=== PATIENT | male | born 1980 | race Caucasian/White ===

== ENCOUNTER 2020-10-06 13:34 | Outpatient (REF) | payer OTHER, SELFPAY ==
--- NOTE | ~2020-10-06 | US_ITS ---
EXAMINATION: US SCROTUM CLINICAL INFORMATION: Left testicular pain. COMPARISON: None. TECHNIQUE: A sonogram of the scrotum was performed assessing ríos-scale appearance and color Doppler flow. Spectral Doppler analysis of the arterial and venous flow were performed in the testes bilaterally. FINDINGS: RIGHT: Right testicle measures 5.0 x 2.1 x 2.7 cm, volume 14.8 mL. There are 2 lesions visualized. 1. Complex heterogenous hypervascular lesion measuring 1.1 x 1.0 x 0.8 mL and ill-defined margins. 2. A hypoechoic lesion with irregular borders and microcalcifications measuring 1.1 x 1.1 x 1.4 cm. Spectral Doppler analysis of the arterial and venous flow is normal in the right testis. Right epididymal head is normal in size. There is an small epididymal cyst measuring 0.3 x 0.3 x 0.3 cm. There is a small right hydrocele and varicocele seen. Right epididymal Doppler flow is increased suggestive of epididymitis. Outside the right testes, in the scrotal wall is an echogenic area question small radha or calcification measuring 0.8 x 0.2 x 1.0 cm. LEFT: Left testicle measures 5.3 x 2.7 x 3.4 cm, volume 25.4 mL. No focal testicular parenchymal lesions are visualized. Spectral Doppler analysis of the arterial and venous flow is increased in the left testis suggestive of epididymitis. Left epididymal head is normal in size. There is a small left hydrocele. No varicocele is seen. Left epididymal Doppler flow is increased suggestive of epididymitis. US/US scrotum IMPRESSION: Bilateral increase epididymal flow suggestive of epididymitis. Right epididymal cyst and right varicocele. There are bilateral small hydroceles. There are 2 solid lesions in the right testes one is hypoechoic with irregular margins but hypervascular likely primary lesion, leukemia or lymphoma. Second echogenic solid mass lower right scrotum, question hematoma or iatrogenic leading into a lesion. Recommend further evaluation with a repeat ultrasound in 2 weeks. Enlarged testes left greater than right. The left testes is unremarkable. Results were discussed with Shawn Garrison by phone at 2:40 PM.
== END 2020-10-06 13:35 | disposition home or self-care (01) ==
LOC: HO.HMGCX 13:34
PROVIDERS: Visit Provider Nurse Practitioner Family
DX: N50.812 Left testicular pain (principal)
CPT/HCPCS: 76870

== ENCOUNTER → 2020-10-18 15:29 | Outpatient (BNVA) | payer OTHER, SELFPAY | PROVIDERS: PCP Nurse Practitioner Family; Visit Provider Urology ==

== ENCOUNTER 2020-10-30 16:15 | Outpatient (REF) | payer OTHER, SELFPAY ==
--- NOTE | ~2020-10-30 | US_ITS ---
EXAMINATION: US SCROTUM CLINICAL INFORMATION: Follow-up testicular mass. COMPARISON: Ultrasound of scrotum 10/06/2020 TECHNIQUE: A sonogram of the scrotum was performed assessing ríos-scale appearance and color Doppler flow. Spectral Doppler analysis of the arterial and venous flow were performed in the testes bilaterally. FINDINGS: RIGHT: Again demonstrated in the right testicle are 2 lesions. There is a complex solid mass measuring 1.1 x 0.9 x 0.8 cm. This is hypervascular. There is a hypoechoic ill-defined mass measuring 1.3 x 0.8 x 0.8 cm. Both of these lesions are similar to the prior ultrasound study of 10/06/2020. The right testicle measures 4.8 x 2.3 x 2.9 cm. Volume 17 mL. There are a few small microcalcifications the testicle. Right epididymal head is normal in size. There is a small right-sided varicocele. LEFT: Left testicle measures 3.2 x 2.5 x 3.4 cm. cm, volume 23 mL. No focal testicular parenchymal lesions are visualized. Spectral Doppler analysis of the arterial and venous flow is normal in the left testis. There are a few small microcalcifications and testicles. Left epididymal head is normal in size. No left hydrocele or varicocele is seen. Left epididymal Doppler flow is normal. US/US scrotum IMPRESSION: The previously identified lesions in the right testicle are redemonstrated Both of these lesions are similar to the prior ultrasound exam of 10/06/2020. Lesions are suspicious for neoplasm.
== END 2020-10-30 16:16 | disposition home or self-care (01) ==
LOC: HO.US 16:15
PROVIDERS: Visit Provider Nurse Practitioner Family
DX: N50.89 Other specified disorders of the male genital organs (principal); N50.812 Left testicular pain
CPT/HCPCS: 76870

== ENCOUNTER → 2020-11-28 13:46 | Outpatient (BNVA) | payer OTHER, SELFPAY | PROVIDERS: Visit Provider Urology ==

== ENCOUNTER 2020-12-11 14:03 | Day surgery (SDC) | payer OTHER, SELFPAY ==
--- NOTE | 2020-12-07 14:16 | HO.ANESPROP2 ---
Documented by User: Pauly Scott 12/07/20 14:17 HPI - Anesthesia Eval Consult details Narrative: 40yo M for Right Orchiectomy Radical PMFSH Active Problems Active Problems: All Active Problems (Updated 10/12/20 @ 13:17 by Juju Hermosillo MD) Conjunctivitis (Acute) Cellulitis (Acute) Testicular pain, left (Acute) Epididymitis (Acute) Mass of right testicle (Acute) Testicular pain (Acute) Past Medical History Medical History Mass of right testicle Family History Family History Father Prostate cancer Mother Afib Asthma High cholesterol HTN (hypertension) Brother Asthma High cholesterol HTN (hypertension) Surgical History Surgical History Hx of appendectomy Social History Social History Household Members: Spouse Housing: House Are you a primary outdoor emergency care technician to a significant other at home: No Do you presently have visiting nurse or other home services: No Alcohol intake: current Alcohol intake frequency: holidays/special occasions only Alcohol type: beer Patient Tobacco Use Status: Never used Tobacco Second Hand Smoke Exposure: No Use of substances other than those prescribed or required for medical reasons: No Substance Use Type: Marijuana Are you DNR?: No Advance Directives: No Advance Directives Information Provided: Yes Advance Directives on File: No Meds Allergies Allergy/AdvReac Type Severity Reaction Status Date / Time No Known Allergies Allergy Verified 10/18/20 15:50 Exam Exam Date and Time: December 07, 2020 1416 Narrative Narrative: US scrotum 10/2020 IMPRESSION: The previously identified lesions in the right testicle are redemonstrated Both of these lesions are similar to the prior ultrasound exam of 10/06/2020. Lesions are suspicious for neoplasm. Assessment and Plan Assessment Anesthesia Assessment: Chart Reviewed Documented by User: Chelle Webb 12/11/20 17:37 PMFSH Past Medical History Medical History Mass of right testicle Family History Family History Father Prostate cancer Mother Afib Asthma High cholesterol HTN (hypertension) Brother Asthma High cholesterol HTN (hypertension) Family history of problems with anesthesia: No Surgical History Surgical History Hx of appendectomy History of Problems with Anesthesia: No Social History Social History Household Members: Spouse Housing: House Are you a primary outdoor emergency care technician to a significant other at home: No Do you presently have visiting nurse or other home services: No Alcohol intake: current Alcohol intake frequency: holidays/special occasions only Alcohol type: beer Patient Tobacco Use Status: Never used Tobacco Second Hand Smoke Exposure: No Use of substances other than those prescribed or required for medical reasons: No Substance Use Type: Marijuana Are you DNR?: No Advance Directives: No Advance Directives Information Provided: Yes Advance Directives on File: No Meds Allergies Allergy/AdvReac Type Severity Reaction Status Date / Time No Known Allergies Allergy Verified 10/18/20 15:50 Exam Height,Weight and Vital Signs: Vital Signs Temp Pulse Resp BP Pulse Ox 12/11/20 14:21 98.5 F 87 16 143/80 H 97 Airway Mallampati Class: II TM Dist: >3cm Neck ROM: Full Heart: RRR Lungs: CTAB Assessment and Plan Assessment Anesthesia Assessment: Anesthesia Plan Discussed and Chart Reviewed Final Anesthetic Review NPO: Yes ASA Class: II Final Preanesthetic Review: No Changes in Pt Med Stat, Meds/Allgs Chart Reviewed, Consent Obtained/Reviewed and Anes Risks/Benef Reviewed Patient Risk: Low Procedure Risk: Low Assessment/Block/Sedation in SS: Assess/Block/Sedation-SS Anesthetic Plan Anesthetic Plan: GA Disposition: Standard PACU
[2020-12-11] VITALS (7 sets, daily range): BP systolic 139–147; BP diastolic 80–94; PULSE 64–91; RESP 15–17; TEMP 36.6–36.9; O2SAT 94–145; BMI 29.5
[2020-12-11] MEDS: levoFLOXacin/D5W 500 MG/100 ML PIGGYBACK 100 MG IV (14:34)
[2020-12-11] MEDS: Lactated Ringers 1,000 ML 100 ML IVCONT (14:34)
--- NOTE | 2020-12-11 18:10 | MHC.SHP ---
Pre-Procedural Eval Section A The patient is an INPATIENT: No Changes since office visit: No Cold of Flu in the past 2 weeks, No New Medical Problems, No Changes in Medication and No Patient answered all questions The History & Physical has been completed within 30 days and I have reviewed it.: Yes Section B Chief Complaint: genital organs disorders Allergies: Allergies Allergy/AdvReac Type Severity Reaction Status Date / Time No Known Allergies Allergy Verified 10/18/20 15:50 Plan Diagnosis/Plan: Unchanged ( right radical orchiectomy) I have reviewed the history and physical and performed a pertinent physical examination on my patient. No changes have occurred unless specified.
--- NOTE | 2020-12-11 18:19 | HO.ANESPROP2 ---
[facility] Active Problems Active Problems: All Active Problems (Updated 12/07/20 @ 14:17 by Pauly Scott) Conjunctivitis (Acute) Cellulitis (Acute) Testicular pain, left (Acute) Epididymitis (Acute) Testicular pain (Acute) Past Medical History Medical History Mass of right testicle Family History Family History Father Prostate cancer Mother Afib Asthma High cholesterol HTN (hypertension) Brother Asthma High cholesterol HTN (hypertension) Family history of problems with anesthesia: No Surgical History Surgical History Hx of appendectomy History of Problems with Anesthesia: No Social History Social History Household Members: Spouse Housing: House Are you a primary cardiac care unit nurse to a significant other at home: No Do you presently have visiting nurse or other home services: No Alcohol intake: current Alcohol intake frequency: holidays/special occasions only Alcohol type: beer Patient Tobacco Use Status: Never used Tobacco Second Hand Smoke Exposure: No Use of substances other than those prescribed or required for medical reasons: No Substance Use Type: Marijuana Are you DNR?: No Advance Directives: No Advance Directives Information Provided: Yes Advance Directives on File: No Meds Allergies Allergy/AdvReac Type Severity Reaction Status Date / Time No Known Allergies Allergy Verified 10/18/20 15:50 Active Medications: Current Medications Generic Name Dose Route Start Last Admin Trade Name Freq PRN Reason Stop Dose Admin Lactated Ringer's 1,000 mls @ 100 mls/hr 12/11/20 14:30 12/11/20 14:34 Lr IVCONT 100 mls/hr .Q10H EDGAR Administration Exam Exam Date and Time: December 11, 20201818 Height,Weight and Vital Signs: Height 5 ft 9 in Weight 90.718 kg Last Vital Signs Temp 98.5 F 12/11/20 14:21 Pulse 87 12/11/20 14:21 Resp 16 12/11/20 14:21 BP 143/80 H 12/11/20 14:21 Pulse Ox 97 12/11/20 14:21 Airway Mallampati Class: II TM Dist: >3cm Neck ROM: Full
--- NOTE | 2020-12-11 19:18 | W.PM.OPN ---
Operative Note Operative Note Date of Service: 12/11/20 Narrative: PreOperative Diagnosis: Right testicular mass Post Operative Diagnosis: Right testicular mass Procedure: Right radical orchiectomy Surgeon: Dr Raj Tran Anesthesia: General Indications for procedure: Initial evaluation for right epididymitis. Indistinct mass within testicle. Repeat imaging after 6 weeks showed persistent presence of mass with resolution of inflammation. Recommendation for right radical orchiectomy. He understands he is 25% chance we may have normal testicular tissue. Procedure: After informed consent was verified the patient was brought to the operating room and placed in a supine position. Anesthesia was administered per protocol. The patient was prepped and draped in sterile fashion. Safety pause time-out was performed. Antibiotics being given. Marking pen was used to make 2-1/2 inch suprainguinal incision. Area was infiltrated with local anesthetic lidocaine 1%. Using sharp blade skin and subcutaneous tissue was incised. Dissection was performed down to layer of the abdominal fascia. The testicle cord was located at the symphysis and elevated and isolated using a [place] drain. The cord was taken back to the inguinal canal and approximately 2 cm inguinal canal was opened with Bovie dissection. Final attachments to the cord were divided. The cord was then divided into with a vascular component and the cord structures into the 2nd packet. Each packet was clamped. The specimen was taken. The cord packet was tied with a 0 silk tie and cut close. The vascular packet was controlled using a stick tie and leaving a 5 cm tail in case this needs to be found at a later date. The overlying abdominal fascia was closed with running 3-0 Monocryl. The incision was irrigated. Skin edges were reapproximated with interrupted 3-0 Vicryl suture. The skin edges were brought close together with 4-0 running Monocryl filament. Dressing was applied consisting of Dermabond glue. He tolerated the procedure well was extubated in operating room transferred in stable condition to the recovery area. Pathology: Testicle Drains: None
[2020-12-11] MEDS: traMADoL HCL 50 MG TABLET PO (19:50)
== END 2020-12-11 20:30 | disposition home or self-care (01) ==
PROVIDERS: PCP Nurse Practitioner Family; Visit Provider Urology
PROC: (CPT 54530; principal; 2020-12-11 16:30)
DX: N50.89 Other specified disorders of the male genital organs (principal); N45.1 Epididymitis; F12.90 Cannabis use, unspecified, uncomplicated
CPT/HCPCS: 54530; 88307; 88309; J1100; J1885; J1956; J2250; J2405; J3010

== ENCOUNTER → 2020-12-20 09:31 | Outpatient (BNVA) | payer OTHER, SELFPAY | PROVIDERS: PCP Nurse Practitioner Family; Visit Provider Urology ==

== ENCOUNTER 2020-12-21 08:21 | Emergency (ER) | payer OTHER, SELFPAY ==
--- NOTE | ~2020-12-21 | MR_ITS ---
EXAMINATION: MR LUMBAR SPINE WITHOUT CONTRAST CLINICAL INFORMATION: Left-sided weakness. Foot drop. COMPARISON: No relevant prior imaging. TECHNIQUE: MRI of the lumbar spine was obtained using routine sequences without contrast. FINDINGS: Alignment is normal. Vertebral heights are preserved. There are type II degenerative endplate changes at L5-S1. Bone marrow signal intensity is otherwise unremarkable. There is loss of intervertebral disc height and T2 signal intensity at L5-S1 related to disc degeneration. Disc desiccation is associated at L4-L5 and to a lesser extent at L3-L4. The tip of the conus medullaris is located at L1. No mass effect on the conus. Visualized distal cord signal intensity is normal. At L1-L2 L2-L3 the annular contours are normal. No canal or neuroforaminal compromise at these 2 levels. At L3-L4 there is a shallow central protrusion. No canal stenosis. No mass effect on the traversing or foraminal nerve roots. At L4-L5 there is a small central protrusion superimposed upon a bulging disc. Bilateral facet degenerative change. No canal stenosis. No mass effect on the traversing or foraminal nerve root. At L5-S1 there is a broad right central protrusion superimposed upon a bulging disc. Bilateral facet degenerative change. No canal stenosis. Mild mass effect on both L5 foraminal nerve root. Limited visualization of the retroperitoneal anatomy reveals no abnormal finding. Psoas and paraspinal muscle groups are symmetric. MR/MR lumbar spine wo con IMPRESSION: There is multilevel degenerative spondylosis of the mid to lower lumbar spine. A shallow right central protrusion superimposed upon a bulging disc at L5-S1 causes mild mass effect on both L5 foraminal nerve roots. Otherwise no substantial mass effect on the traversing or foraminal nerve roots elsewhere within the lumbar spine. No canal stenosis.
[2020-12-21 08:35] VITALS: BP 155/85; PULSE 85; RESP 18; TEMP 37.2; O2SAT 96; BMI 30.2
--- NOTE | 2020-12-21 09:23 | ED.GENADULT ---
HPI - General Adult General Chief complaint: Back Pain/Injury Stated complaint: BACK AND LEG PAIN Time Seen by Provider: 12/21/20 09:21 Source: patient Limitations: no limitations History of Present Illness HPI narrative: Patient complaining of worsening lower back pain. Patient states back pain is atraumatic. Worse with range of motion and radiating down left leg. Numbness tingling to the left foot. Symptoms are moderate. Pain is 9/10 no relief with tramadol. Patient recently had a Right radical orchiectomy done by Dr. Tran of Urology on 12/11/2020. Patient seen in the office yesterday patient prescribed tramadol for the worsening back pain at that time. Patient denies loss of bowel movements or urinary incontinence. Related Data Home Medications Medication Instructions Recorded Confirmed betamethasone dipropionate 0.05 % TOPICAL 12/20/20 topical ointment Previous Rx's Medication Instructions Recorded levofloxacin 500 mg tablet 500 mg PO DAILY 10 Days #10 tab 10/06/20 tramadol 50 mg tablet 50 mg PO Q6H PRN #14 tab 12/20/20 methocarbamol 750 mg PO TID PRN #20 tab 12/21/20 naproxen [EC-Naprosyn] 500 mg PO Q12H PRN #30 tab 12/21/20 oxycodone 5 mg PO TID PRN #14 tab 12/21/20 prednisone 60 mg PO DAILY 5 Days #15 tab 12/21/20 Allergies Allergy/AdvReac Type Severity Reaction Status Date / Time No Known Allergies Allergy Verified 12/20/20 09:33 Review of Systems Review of Systems: Constitutional : No Weight loss, No Fever, No Chills, No Night Sweats, No Fatigue, No Malaise ENT/Mouth : No Hearing loss, No Ear Pain, No Nasal Congestion, No Sinus Pain, No Hoarseness, No sore throat, No Rhinorrhea, No Swallowing Difficulty Eyes: No Eye Pain, No Swelling, No Redness, No Foreign Body, No Discharge, No Vision Changes Cardiovascular : No Chest Pain, No SOB, No Dyspnea on Exertion, No Orthopnea, No Edema, No Palpitations Respiratory : No Cough, No Sputum, No Wheezing, No Smoke Exposure, No Dyspnea Gastrointestinal : No Nausea, No Vomiting, No Diarrhea, No Constipation, No abdominal Pain Genitourinary : no irregular bleeding, No Dysuria, No Urinary Frequency, No Hematuria, No Urinary Incontinence, No Urgency, No Flank Pain, No Urinary Flow Changes, No Hesitancy Musculoskeletal : positive back pain radiating down left leg. Neuro : Left foot numbness. Psych : No Anxiety/Panic, No Depression, No SI/HI/AH/VH, No Social Issues, Heme/Lymph: No Bruising, No Bleeding,No Lymphadenopathy Endocrine : No Polyuria, No Polydipsia, No Temperature Intolerance [facility] Past Medical History Attestation statement: The following information was validated with the patient. Medical History Mass of right testicle Surgical History Hx of appendectomy Family History Family History (Reviewed 12/21/20 @ 09: by Vik Urena) Father Prostate cancer Mother Afib Asthma High cholesterol HTN (hypertension) Brother Asthma High cholesterol HTN (hypertension) Social History Social History Household Members: Spouse Housing: House Are you a primary ambulatory care coordinator to a significant other at home: No Do you presently have visiting nurse or other home services: No Alcohol intake: current Alcohol intake frequency: holidays/special occasions only Alcohol type: beer Patient Tobacco Use Status: Never used Tobacco Second Hand Smoke Exposure: No Substance Use Type: Marijuana Advance Directives: Yes Advance Directives Information Provided: Yes Advance Directives on File: No Physical Exam Vital Signs: Vital Signs: Last Vital Signs Temp 99.0 F 12/21/20 08:35 Pulse 85 12/21/20 08:35 Resp 18 12/21/20 11:46 BP 150/80 H 12/21/20 11:46 Pulse Ox 96 12/21/20 08:35 Body Mass Index 30.2 vital signs have been reviewed as normal and appeared to be correct. Blood pressure normal. Heart rate normal. Respiration rate normal. Temperature normal. Oxygen saturation normal. Appearance: Alert. Oriented X3. No acute distress. Head: Normal external exam. Normocephalic. Atraumatic. Eyes: PERRLA. EOMI ENT: Pharynx normal. Uvula midline. Moist mucous membranes. Neck: Soft full range of motion CVS: Heart regular rate and rhythm no murmurs and rubs Respiratory: Breath sounds are clear to auscultation bilaterally. No accessory muscle use noted. Abdomen: Soft nontender no rebound or guarding positive bowel sounds Back: Positive paraspinal muscle tenderness of the lumbar spine and left side positive straight leg raise on the left. left calf is nontender. Positive pulses in the left lower extremity. Skin: Skin warm and dry. Normal skin color. Extremities: Positive tenderness when palpating left foot pain increases with range of motion. Neuro: Oriented X 3. No motor deficit. No sensory deficit. Reflexes normal. Course Course Course Narrative: Lumbar disc herniation Left leg sciatica Lumbar strain Lumbar disc impingement 9:29 a.m. 30 mg Toradol IM 4 mg morphine IM 60 mg prednisone p.o. 9:49 a.m. secondary to findings of the left foot weakness will get an MRI of the lumbar spine at this time plan for 11:45 a.m. 11:20 a.m. positive relief with analgesics patient still has some slight left foot weakness case discussed with Dr. Sibley he is aware of current treatment and plan Medical Decision Making Imaging Data MRI: Radiologist's impression: [address] [id number] Resonance ReportSigned Patient: [facility]#: [id number]: 1980Acct:[id number]/Sex: 40 / MADM Date: 12/21/20Loc: EDAttending Dr: Ordering Physician: Vik Urena Date of Service: 12/21/20 Procedure(s): MR lumbar spine wo con Accession Number(s): [id number] cc: Vik Urena ~ EXAMINATION: MR LUMBAR SPINE WITHOUT CONTRAST CLINICAL INFORMATION: Left-sided weakness. Foot drop. COMPARISON: No relevant prior imaging. TECHNIQUE: MRI of the lumbar spine was obtained using routine sequences without contrast. FINDINGS: Alignment is normal. Vertebral heights are preserved. There are type II degenerative endplate changes at L5-S1. Bone marrow signal intensity is otherwise unremarkable. There is loss of intervertebral disc height and T2 signal intensity at L5-S1 related to disc degeneration. Disc desiccation is associated at L4-L5 and to a lesser extent at L3-L4. The tip of the conus medullaris is located at L1. No mass effect on the conus. Visualized distal cord signal intensity is normal. At L1-L2 L2-L3 the annular contours are normal. No canal or neuroforaminal compromise at these 2 levels. At L3-L4 there is a shallow central protrusion. No canal stenosis. No mass effect on the traversing or foraminal nerve roots. At L4-L5 there is a small central protrusion superimposed upon a bulging disc. Bilateral facet degenerative change. No canal stenosis. No mass effect on the traversing or foraminal nerve root. At L5-S1 there is a broad right central protrusion superimposed upon a bulging disc. Bilateral facet degenerative change. No canal stenosis. Mild mass effect on both L5 foraminal nerve root. Limited visualization of the retroperitoneal anatomy reveals no abnormal finding. Psoas and paraspinal muscle groups are symmetric. MR/MR lumbar spine wo con IMPRESSION: There is multilevel degenerative spondylosis of the mid to lower lumbar spine. A shallow right central protrusion superimposed upon a bulging disc at L5-S1 causes mild mass effect on both L5 foraminal nerve roots. Otherwise no substantial mass effect on the traversing or foraminal nerve roots elsewhere within the lumbar spine. No canal stenosis. Dictated By:ANA DELOEN MDSigned By:<Electronically signed by ANA DELEON MD in OV>12/21/20 1249 DD/ [id number]/TT: Radiographer Mammographer: Discharge Plan Discharge Clinical Impression: Disc degeneration, lumbar, Disc displacement, lumbar Patient Disposition: Home, Self-Care Instructions: Lumbar Disc Herniation (ED) Additional Instructions: follow-up with PCP with possible referral to Neurosurgery and/or physical therapy medications as directed you can also follow-up at [facility] [address] [place] [address] [id number] Prescriptions: New prednisone 20 mg tablet 60 mg PO DAILY 5 Days Qty: 15 RF: 0 naproxen [EC-Naprosyn] 500 mg tablet,delayed release (DR/EC) 500 mg PO Q12H PRN (Reason: pain) Qty: 30 RF: 0 oxycodone 5 mg tablet 5 mg PO TID PRN (Reason: pain) Qty: 14 RF: 0 methocarbamol 750 mg tablet 750 mg PO TID PRN (Reason: muscle spasm) Qty: 20 RF: 0 No Action levofloxacin 500 mg tablet 500 mg PO DAILY 10 Days Qty: 10 RF: 0 tramadol 50 mg tablet 50 mg PO Q6H PRN (Reason: pain (scale score 4-6)) Qty: 14 RF: 0
[2020-12-21] MEDS: Ketorolac Tromethamine 30 MG/ML VIAL IM (09:37)
[2020-12-21] MEDS: Morphine Sulfate 4 MG/ML CARTRIDGE IM (09:38)
[2020-12-21] MEDS: predniSONE 20 MG TABLET 60 MG PO (09:38)
[2020-12-21 11:46] VITALS: BP 150/80; RESP 18
[2020-12-21] MEDS: oxyCODONE HCl Immed Release 5 MG TABLET PO (13:20)
== END 2020-12-21 13:38 | disposition home or self-care (01) ==
PROVIDERS: Emergency Provider Emergency Medicine Emergency Medical Services; PCP Nurse Practitioner Family
DX: M51.36 Other intervertebral disc degeneration, lumbar region (principal); M51.26 Other intervertebral disc displacement, lumbar region
CPT/HCPCS: 72148; 96372; 99284; J1885; J2270

== ENCOUNTER 2021-01-09 15:02 | Outpatient (REF) | payer OTHER, SELFPAY | END 2021-01-09 15:03 | disposition home or self-care (01) | LOC: HO.CT 15:02 | PROVIDERS: PCP Nurse Practitioner Family; Visit Provider Internal Medicine | DX: Z13.89 Encounter for screening for other disorder (principal) ==

== ENCOUNTER 2021-01-11 15:42 | Outpatient (REF) | payer OTHER, SELFPAY ==
--- NOTE | ~2021-01-11 | CT_ITS ---
EXAMINATION: CT ABDOMEN AND PELVIS WITH CONTRAST CLINICAL INFORMATION: Right testicular cancer COMPARISON: None TECHNIQUE: Multidetector volumetric images were obtained from the superior aspect of the liver through the pubic symphysis following administration 85 mL of Omnipaque 350 intravenous contrast. Sagittal and coronal reformatted images were obtained on the technologist's workstation. Oral contrast: Yes This CT examination was performed using dose optimization techniques as appropriate, variously including the following: *Automated exposure control *Adjustment of mA and/or kV according to patient size (this includes techniques or standardized protocols for targeted exams where dose is matched to indication/reason for exam; i.e. extremities or head) *Use of iterative reconstruction technique DLP: 835 mGy-cm FINDINGS: LUNG BASES: The visualized lung bases are unremarkable. LIVER, GALLBLADDER, AND BILIARY TREE: The liver is normal in size, shape, and attenuation. No focal hepatic lesion or biliary ductal dilatation is present. The gallbladder is unremarkable with no evidence of radiopaque gallstones, gallbladder wall thickening, or obvious pericholecystic inflammatory changes. PANCREAS: Unremarkable. SPLEEN: Unremarkable. ADRENAL GLANDS: Unremarkable. KIDNEYS AND URETERS: The kidneys are normal in size, shape, and attenuation. No hydronephrosis, hydroureter, or calculi seen. No perinephric stranding. BLADDER: Unremarkable. GASTROINTESTINAL TRACT: The small and large bowel are unremarkable. The appendix is is not seen and has probably been removed. ABDOMINAL WALL: No significant hernia is appreciated. LYMPH NODES: There are small bilateral pelvic retroperitoneal lymph nodes. Largest lymph nodes are iliac bifurcation and pelvic wall lymph nodes measuring 0.8 x 1.9 cm on the right and 1 x 1.5 cm on the left. There are small bilateral inguinal nodes. VASCULAR: Unremarkable. PELVIC VISCERA: The prostate gland does not appear enlarged. There are postsurgical changes following right orchiectomy. There is a right hydrocele. OSSEOUS STRUCTURES: There is degenerative disc disease at L5-S1. CT/CT abdomen pelvis w con IMPRESSION: Small bilateral pelvic retroperitoneal lymph nodes and bilateral inguinal lymph nodes and no enlarged lymph nodes seen. Probable right hydrocele.
[2021-01-11] MEDS: iohexoL 350 MG/ML 100 ML INFUS..BTL IV (16:11)
== END 2021-01-11 15:43 | disposition home or self-care (01) ==
LOC: HO.CT 15:42
PROVIDERS: Visit Provider Internal Medicine
DX: C62.11 Malignant neoplasm of descended right testis (principal); N50.1 Vascular disorders of male genital organs
CPT/HCPCS: 74177; Q9967

== ENCOUNTER 2021-05-11 13:55 | Outpatient (REF) | payer OTHER, SELFPAY | END 2021-05-11 13:56 | disposition home or self-care (01) | LOC: HO.LNP 13:55 | PROVIDERS: Visit Provider Physician Assistant Medical | DX: Z20.822 Contact with and (suspected) exposure to COVID-19 (principal); R05.9 Cough, unspecified | CPT/HCPCS: U0003; U0005 ==

== ENCOUNTER 2021-05-24 15:31 | Outpatient (REF) | payer OTHER, SELFPAY ==
--- NOTE | ~2021-05-24 | CT_ITS ---
EXAMINATION: CT CHEST WITH CONTRAST CLINICAL INFORMATION: Surveillance. Testicular cancer. COMPARISON: Previous chest x-ray most recent March 2021 TECHNIQUE: Multidetector volumetric CT imaging of the chest was obtained after the administration of 85 mL of Omnipaque 350 intravenous contrast without immediate adverse reactions. Axial MIP volume rendering provided. Sagittal and coronal reformatted images were obtained. This CT examination was performed using dose optimization techniques as appropriate, variously including the following: *Automated exposure control *Adjustment of mA and/or kV according to patient size (this includes techniques or standardized protocols for targeted exams where dose is matched to indication/reason for exam; i.e. extremities or head) *Use of iterative reconstruction technique DLP: 238 mGy-cm FINDINGS: LUNGS: The lungs are clear with no evidence of inflammation or nodules. MEDIASTINUM: The mediastinum is normal. PLEURA: There is no pleural effusion. No pleural mass or thickening. AXILLA: No lymphadenopathy. OSSEOUS STRUCTURES: Unremarkable. CT/CT chest w con IMPRESSION: Unremarkable examination. Fleischner guidelines were followed.
--- NOTE | ~2021-05-24 | CT_ITS ---
EXAMINATION: CT ABDOMEN AND PELVIS WITH CONTRAST CLINICAL INFORMATION: Surveillance of testicular cancer COMPARISON: Previous CT of the abdomen and pelvis December 2020 TECHNIQUE: Multidetector volumetric images were obtained from the superior aspect of the liver through the pubic symphysis following administration 85 mL of Omnipaque 350 intravenous contrast. Sagittal and coronal reformatted images were obtained on the technologist's workstation. Oral contrast: Yes This CT examination was performed using dose optimization techniques as appropriate, variously including the following: *Automated exposure control *Adjustment of mA and/or kV according to patient size (this includes techniques or standardized protocols for targeted exams where dose is matched to indication/reason for exam; i.e. extremities or head) *Use of iterative reconstruction technique DLP: 721 mGy-cm FINDINGS: LIVER, GALLBLADDER, AND BILIARY TREE: The liver is normal in size and shape. The liver is low in attenuation suggestive of fatty infiltration. No focal liver lesion is seen. No focal hepatic lesion or biliary ductal dilatation is present. The gallbladder is unremarkable with no evidence of radiopaque gallstones, gallbladder wall thickening, or obvious pericholecystic inflammatory changes. PANCREAS: Unremarkable. SPLEEN: Unremarkable. ADRENAL GLANDS: Unremarkable. KIDNEYS AND URETERS: The kidneys are normal in size, shape, and attenuation. No hydronephrosis, hydroureter, or calculi seen. No perinephric stranding. BLADDER: Unremarkable. GASTROINTESTINAL TRACT: The small and large bowel are unremarkable. The appendix is not identified and may have been removed. ABDOMINAL WALL: No significant hernia is appreciated. LYMPH NODES: There are small retroperitoneal lymph nodes in the abdomen and pelvis. Largest abdominal retroperitoneal lymph node measures 8 x 10 mm in the left periaortic region just below the left renal hilum axial image 34 series 3 and is stable. Largest lymph nodes are left iliac bifurcation/pelvic sidewall lymph node measuring 4 x 11 mm in transverse and AP dimension compared to 10 x 15 mm on December 2020 exams and right iliac bifurcation/pelvic sidewall lymph node measuring 8 x 23 mm in transverse and AP dimension compared to 8 x 29 mm on December 2020 exam. There are small bilateral inguinal lymph nodes that are stable. VASCULAR: Unremarkable. PELVIC VISCERA: Unremarkable. OSSEOUS STRUCTURES: There is degenerative disc disease at L5-S1. CT/CT abdomen pelvis w con IMPRESSION: Small retroperitoneal lymph nodes in the abdomen and pelvis and bilateral inguinal regions. Lymph nodes in the bilateral pelvis appear decreased from December 2020 exam. Retroperitoneal lymph nodes in the abdomen and lymph nodes in the bilateral inguinal regions appear unchanged. Fleischner guidelines were followed.
[2021-05-24] MEDS: iohexoL 350 MG/ML 100 ML INFUS..BTL IV (16:02)
== END 2021-05-24 15:32 | disposition home or self-care (01) ==
LOC: HO.CT 15:31
PROVIDERS: Visit Provider Internal Medicine
DX: C62.11 Malignant neoplasm of descended right testis (principal)
CPT/HCPCS: 71260; 74177; Q9967

== ENCOUNTER 2021-12-14 09:54 | Outpatient (REF) | payer OTHER, SELFPAY ==
--- NOTE | ~2021-12-14 | XR_ITS ---
EXAMINATION: XR CHEST CLINICAL INFORMATION: [place]. COMPARISON: 04/18/2021 chest radiograph. TECHNIQUE: 2 views of the chest were obtained. FINDINGS: No significant abnormality is noted involving the heart, lungs, mediastinum, bony thorax or soft tissues. XR/XR chest 2V IMPRESSION: No acute cardiopulmonary process.
== END 2021-12-14 09:55 | disposition home or self-care (01) ==
LOC: HO.HMGCX 09:54
PROVIDERS: PCP Nurse Practitioner Family; Visit Provider Internal Medicine
DX: C76.1 Malignant neoplasm of thorax (principal)
CPT/HCPCS: 71046

== ENCOUNTER 2022-01-10 15:39 | Outpatient (REF) | payer OTHER, SELFPAY ==
--- NOTE | ~2022-01-10 | US_ITS ---
EXAMINATION: US SCROTUM CLINICAL INFORMATION: Enlarged left testicle. COMPARISON: US scrotum 10/30/2020 TECHNIQUE: A sonogram of the scrotum was performed assessing ríos-scale appearance and color Doppler flow. Spectral Doppler analysis of the arterial and venous flow was performed in the solitary left testis. FINDINGS: RIGHT: Surgically absent. LEFT: Left testicle measures 5.2 x 2.6 x 3.4 cm, volume 24.1 mL, previously 23 mL. No focal testicular parenchymal lesions are visualized. Spectral Doppler analysis of the arterial and venous flow is normal in the left testis. Left epididymal head is normal in size. No left varicocele is seen. Small left hydrocele. Left epididymal Doppler flow is normal. US/US scrotum IMPRESSION: Left testicle measures 24.1 mL, similar to prior. No testicular mass. Status post right orchiectomy. Small left hydrocele.
== END 2022-01-10 15:40 | disposition home or self-care (01) ==
LOC: HO.HMGCX 15:39
PROVIDERS: Visit Provider Nurse Practitioner Family
DX: N50.89 Other specified disorders of the male genital organs (principal)
CPT/HCPCS: 76870

== ENCOUNTER 2022-06-05 15:55 | Outpatient (REF) | payer OTHER, SELFPAY ==
--- NOTE | ~2022-06-05 | CT_ITS ---
EXAMINATION: CT CHEST CT ABDOMEN AND PELVIS WITH IV CONTRAST CLINICAL INFORMATION: Malignant neoplasm of unspecified testes. COMPARISON: CT chest, abdomen and pelvis 05/24/2021. TECHNIQUE: 5 mm thin axial and reformatted 3 mm thin sagittal coronal images of chest, abdomen and pelvis were obtained following IV 85 mL Omnipaque 350. DLP: 755 mGy-cm. This CT examination was performed using dose optimization technique as appropriate, variously including the following: Automated exposure control Adjustment of MA and/or KV according to patient size(this includes techniques or standardized protocols for targeted exams where dose is matched to indication/reason for exam; extremities or head. Use of iterative reconstruction techniques. FINDINGS: CHEST: Lungs: Both lungs are fairly well-expanded and clear of acute pneumonic process. There are no pulmonary nodules, mass or consolidation. Mediastinum: Heart size and the great vessels are normal caliber. There is trace coronary artery calcifications. No pericardial effusion seen. Central trachea and the bronchi is widely patent. No abnormal size mediastinal or hilar lymph nodes seen. Thyroid lobes are symmetrical and normal. There is a prominent pericardial fat extending into the lingular segment and the anterolateral pleura. Pleura: There is no pleural thickening, calcification or effusion. Axilla: No abnormal size axillary lymph nodes. ABDOMEN AND PELVIS: Liver, ducts and gallbladder: The liver is normal size slightly diminished in density and normal contour. No focal lesions or intrahepatic ductal dilatation seen. The gallbladder is contracted. Spleen: The spleen is unremarkable. Small accessory splenule is seen inferior to the hilum Pancreas: The pancreas is normal size and density. Peripancreatic fat borders are preserved. Adrenal glands: Unremarkable. Kidneys and ureters: There are bilateral symmetrical nephrograms with normal cortical thickness. No enhancing lesion, cyst, radiopaque calculi are hydronephrosis seen. Lymphovascular structures: Abdominal aorta is normal caliber. Small shotty lymph nodes are seen in the retroperitoneum, unchanged to previous study. GI tract: There is scattered oral contrast, stool and gas seen throughout the colon without distention. There is oral contrast seen in the small bowel loops and appears unremarkable. There is recently ingested food and oral contrast and a slightly distended stomach. Appendix is not visualized with certainty. Abdominal wall: A small umbilical hernia containing fat is noted. Pelvis: The urinary bladder is nondistended. The prostate gland is normal. Small shotty bilateral inguinal and pelvic lymph nodes are stable. Osseous structures: No aggressive lytic or sclerotic process seen. CT/CT abdomen pelvis w IV con IMPRESSION: 1. Unremarkable CT chest, abdomen and pelvis with contrast. 2. No pulmonary nodules, mass or consolidation. 3. Prominent pericardial fat extending into the lingular segment and the anterolateral pleura. 4. No acute intra-abdominal process seen except for mild constipation. 5. Small shotty lymph nodes in the retroperitoneum, bilateral inguinal region and pelvis, stable.
[2022-06-05] MEDS: iohexoL 350 MG/ML 100 ML INFUS..BTL IV (16:16)
== END 2022-06-05 15:56 | disposition home or self-care (01) ==
LOC: HO.CT 15:55
PROVIDERS: PCP Nurse Practitioner Family; Visit Provider Internal Medicine
DX: C62.90 Malignant neoplasm of unspecified testis, unspecified whether descended or undescended (principal)
CPT/HCPCS: 71260; 74177; Q9967

== ENCOUNTER 2022-08-01 07:54 | Outpatient (REF) | payer OTHER, SELFPAY ==
[2022-08-01 11:18] LABS: Appearance Urine Turbid; Color Urine Yellow; Glucose Urine UA Negative (Negative); Leukocyte Esterase Urine Negative (Negative); Nitrite Urine Negative (Negative); PH 5.5 (5.0-9.0); Urine Blood Negative (Negative); Urine Ketones Negative (Negative); Urine Protein Negative (Neg-Trace)
[2022-08-01 11:22] LABS: MANUAL DIFF FLAG NO
[2022-08-01 11:27] LABS: Basophils Absolute Auto 0.1 X10*3/uL (0.0-0.2); Basophils Percent Auto 1.1 % (0-2); Eosinophils Absolute Auto 0.2 X10*3/uL (0.0-0.4); Eosinophils Percent Auto 2.5 % (0-4); Hematocrit 47.3 % (42.0-52.0); Hemoglobin 16.6 g/dl (14.0-18.0); Imm Gran Abs Auto 0.03 X10*3/uL (0.00-0.03); Imm Gran Pct Auto 0.5 % (0.0-0.4); Lymphocytes Absolute Auto 1.7 X10*3/uL (1.2-4.9); Lymphocytes Percent Auto 25.9 % (20-40); Mean Corpuscular HGB Conc 35.1 g/dl (31.0-36.0); Mean Corpuscular Hemoglobin 31.3 pg (27.0-33.0); Mean Corpuscular Volume 89.2 fL (80.0-98.0); Mean Platelet Volume 11.2 fL (9.4-12.4); Monocytes Absolute Auto 0.6 X10*3/uL (0.1-1.2); Monocytes Percent Auto 8.6 % (2-11); Neutrophils Absolute Auto 3.9 x10*3/uL (2.0-8.3); Neutrophils Percent Auto 61.4 % (45-73); Platelet Count 271 X10*3/uL (160-400); Red Cell Distribution Width 12.9 % (11.0-16.0); White Blood Count 6.4 X10*3/uL (4.8-10.8)
[2022-08-01 12:18] LABS: Alanine Aminotransferase 17 U/L (0-40); Albumin Level 4.4 g/dL (3.5-5.0); Alkaline Phosphatase 71 U/L (39-117); Anion Gap 15 (12-20); Aspartate Amino Transferase 22 U/L (5-37); Bilirubin Total 0.9 mg/dL (0.0-1.0); Blood Urea Nitrogen 15 mg/dL (9-16); Calcium 9.5 mg/dL (8.4-10.2); Carbon Dioxide 25 mmol/L (22-29); Chloride 103 mmol/L (96-108); Cholesterol 238 mg/dL; Estimated Glomerular Filt Rate > 60; Glucose Fasting 99 mg/dL (60-99); HDL Cholesterol 56 mg/dL; LDL Cholesterol Calculated 161 mg/dl; Potassium 4.5 mmol/L (3.3-5.1); Sodium 138 mmol/L (135-145); TSH reflex Free T4 1.05 uIU/mL (0.32-4.0); Total Protein 7.5 g/dL (6.5-8.0); Triglycerides 109 mg/dL
[2022-08-09 15:18] LABS: Testosterone, Free 89.6 pg/mL (35.0-155.0); Testosterone, Total 415 ng/dL (250-1100)
== END 2022-08-01 07:55 | disposition home or self-care (01) ==
LOC: HO.HMGCLDS 07:54
PROVIDERS: PCP Nurse Practitioner Family; Visit Provider Nurse Practitioner Family
DX: N52.9 Male erectile dysfunction, unspecified (principal)
CPT/HCPCS: 36415; 80053; 80061; 81003; 84402; 84403; 84443; 85025

== ENCOUNTER → 2022-10-08 08:14 | Outpatient (BNVA) | payer OTHER, SELFPAY | PROVIDERS: PCP Nurse Practitioner Family; Visit Provider Internal Medicine | DX: L23.7 Allergic contact dermatitis due to plants, except food (principal) | CPT/HCPCS: 99202 ==

== ENCOUNTER 2022-12-30 15:24 | Outpatient (REF) | payer OTHER, SELFPAY ==
--- NOTE | ~2022-12-30 | XR_ITS ---
EXAMINATION: CHEST 2 VIEWS CLINICAL INFORMATION: Surveillance. COMPARISON: 08/26/2022. TECHNIQUE: PA and lateral views of the chest obtained. FINDINGS: The lungs are well expanded. No focal infiltrate, effusion, edema, or pneumothorax. Cardiac and mediastinal silhouettes are within normal limits for technique. No acute bony abnormality seen XR/XR chest 2V IMPRESSION: No evidence of acute disease
--- NOTE | ~2022-12-30 | CT_ITS ---
EXAMINATION: CT ABDOMEN AND PELVIS WITH CONTRAST CLINICAL INFORMATION: Testicular carcinoma. Surveillance. COMPARISON: 06/05/2022 TECHNIQUE: Multidetector volumetric images were obtained from the superior aspect of the liver through the pubic symphysis following administration 85 mL of Omnipaque 350 intravenous contrast. Sagittal and coronal reformatted images were obtained on the technologist's workstation. Oral contrast: No This CT examination was performed using dose optimization techniques as appropriate, variously including the following: *Automated exposure control *Adjustment of mA and/or kV according to patient size (this includes techniques or standardized protocols for targeted exams where dose is matched to indication/reason for exam; i.e. extremities or head) *Use of iterative reconstruction technique DLP: 505 mGy-cm FINDINGS: LUNG BASES: The visualized lung bases are unremarkable. LIVER, GALLBLADDER, AND BILIARY TREE: Changes of diffuse hepatic steatosis. No focal lesion or focal biliary ductal dilatation. The gallbladder is unremarkable with no evidence of radiopaque gallstones, gallbladder wall thickening, or obvious pericholecystic inflammatory changes. PANCREAS: Unremarkable. SPLEEN: Incidental splenule. ADRENAL GLANDS: Unremarkable. KIDNEYS AND URETERS: The kidneys are normal in size, shape, and attenuation. No hydronephrosis, hydroureter, or calculi seen. No perinephric stranding. BLADDER: Nonspecific mild bladder wall thickening. No discrete lesion or stones. GASTROINTESTINAL TRACT: The small and large bowel are unremarkable. The appendix is surgically absent. Small fat-containing umbilical hernia.. ABDOMINAL WALL: No focal abnormality as above. LYMPH NODES: Small tiny reactive appearing intracranial lymph nodes. VASCULAR: Unremarkable. PELVIC VISCERA: Unremarkable. OSSEOUS STRUCTURES: Unremarkable. CT/CT abdomen pelvis w IV con IMPRESSION: No evidence for any metastatic disease. Incidental findings as above. No pathologic lymphadenopathy. Fleischner guidelines were followed.
== END 2022-12-30 15:25 | disposition home or self-care (01) ==
LOC: HO.CT 15:24
PROVIDERS: PCP Nurse Practitioner Family; Visit Provider Internal Medicine
DX: C62.90 Malignant neoplasm of unspecified testis, unspecified whether descended or undescended (principal)
CPT/HCPCS: 71046; 74177; Q9967

== ENCOUNTER → 2024-02-09 11:37 | Outpatient (BNVA) | payer OTHER, SELFPAY | PROVIDERS: PCP Nurse Practitioner Family; Visit Provider Physician Assistant Medical | DX: L23.7 Allergic contact dermatitis due to plants, except food (principal) | CPT/HCPCS: 99203 ==

== ENCOUNTER 2024-09-27 11:12 | Outpatient (AMB) | payer OTHER, SELFPAY ==
--- NOTE | 2024-09-27 11:16 | AM.OFFWIN_ITS ---
Intake Vital Signs 09/27/24 11:18 Weight 213 lb BP 128/80 Blood Pressure Location Rt brachial Position Sitting Pulse 108 H Pulse Source Pulse Oximeter Pulse Oximetry (%) 98 Oxygen Delivery Method Room Air Intake Visit Reasons: EP rapid heart beat Intake Note: Patient here for rapid heart rate that happened yesterday and then went away. Patient Tobacco Use Status: Never used Tobacco Allergies No Known Allergies Allergy (Verified 09/27/24 11:18) Do you need a note to return to daycare/school/sports/work: Yes HPI HPI Comments History of Present Illness Details 44 y/o male patient who presents to the walk in clinic with c/o Rapid Hear Rate on/off since Yesterday. Reports Heart Palpitations and increased Heart Rate at Rest. Denies taking any medications. Denies Smoking Marijuana or cigarettes. Denies Chest Pains, Nausea, vomiting, Headaches or dizziness. [facility] Medical History (Updated 09/27/24 @ 11:37 by Marti Delaney NP) Heart palpitations Tachycardia [place] of descended right testis Mass of right testicle Surgical History Hx of appendectomy Family History Father Prostate cancer Mother Afib Asthma High cholesterol HTN (hypertension) Brother Asthma High cholesterol HTN (hypertension) Social History Household Members: Spouse Housing: House Are you a primary animal caregiver to a significant other at home: No Do you presently have visiting nurse or other home services: No Alcohol intake: current Alcohol intake frequency: holidays/special occasions only Alcohol type: beer Patient Tobacco Use Status: Never used Tobacco e-Cigarette/Vaping Use: Never Used Second Hand Smoke Exposure: No Substance Use Type: Marijuana service: Yes Current occupational status: employed Current occupation: [employer] Current occupational exposures/hazards: Yes Cognitive needs: No Hearing needs: No Vision needs: No Review of Systems Const All systems reviewed & are unremarkable except as noted in HPI and below Physical Exam Vital Signs: Last Vital Signs Pulse 108 H 09/27/24 11:18 BP 128/80 09/27/24 11:18 Pulse Ox 98 09/27/24 11:18 Oxygen Delivery Method Room Air 09/27/24 11:18 Const General: no acute distress Nutritional Appearance: overweight Orientation/consciousness: patient oriented x3 Resp Effort & Inspection: normal respiratory effort and able to speak in complete sentences Auscultation: clear to auscultation bilaterally, no crackles, no rales, no rhonchi and no wheezes Cardio Rate: tachycardic Heart sounds: S1 normal heart sound present and S2 normal heart sound present Neuro General: patient oriented x3, gait normal and moves all extremities Psych Speech and movement: Normal speech and movement present Assessment & Plan Assessment & Plan (1) Tachycardia: Code(s): R00.0 - Tachycardia, unspecified Plan: Ordered ECG Normal Sinus on ECG Advised Purchase Smart watch or Blood Pressure Device and continue to monitor HR at Home. Advised To Go to ED if symptoms worsen F/U with PCP. (2) Heart palpitations: Code(s): R00.2 - Palpitations Plan: Ordered ECG Normal Sinus on ECG Advised Purchase Smart watch or Blood Pressure Device and continue to monitor HR at Home. Advised To Go to ED if symptoms worsen F/U with PCP. Orders: Orders AMB EKG-In Office Today R00.0 - Tachycardia, unspecified, R00.2 - Palpitations Medications: Discontinued indomethacin administer with food or milk Discontinued Reason: Patient Completed Course 50 mg PO BID 30 days PRN 60 caps 4RF pain Coding Level of Care Code Est Pt Level 4 (75415) Diagnoses Tachycardia R00.0 Heart palpitations R00.2 Time Spent (min) 20
[2024-09-27 11:18] VITALS: BP 128/80; PULSE 108; O2SAT 98
--- OUTSIDE RECORDS SUMMARY | 2024-09-27 13:27 | XMS_ITS | Clinical Summary ---
Author Organization [facility] Address [address] [place] [address] Care Team Providers Care Pricing Specialist Name Role Phone Unknown Primary Care Provider [phone] Social History Tobacco Use Types Packs/Day Years Used Date Smoking Tobacco: Never Assessed Sex and Gender Information Value Date Recorded Sex Assigned at Not on file Gender Identity Not on file Sexual Orientation Not on file Last Filed Vital Signs Vital Sign Reading Time Taken Comments Blood Pressure 110/80 05/05/2011 12:23 PM EST Pulse - - Temperature 37 ??C (98.6 ??F) 05/05/2011 12:23 PM EST Respiratory Rate - - Oxygen Saturation - - Inhaled Oxygen Concentration - - Weight 101 kg (222 lb 0.1 oz) 05/05/2011 12:23 P M EST Height - - Body Mass Index - - Plan of Treatment Health Maintenance Due Date Last Done Comments Hepatitis C Virus Screening 1978 HIV Screening 1991 DTaP/Tdap/Td Vaccines (1 - Tdap) 1997 Hepatitis B Vaccines (1 of 3 - 19+ 3-dose series) 1997 Colonoscopy 2023 Influenza Vaccine 01/22/2024 COVID-19 Vaccine ( - 2023-2 5 season) 2024 HPV Vaccines Aged Out No longer eligi ble based on patient's age to complete this topic Pneumococcal Vaccine: Pediat jovan (0-5 Years) and At-Risk Patients (6 to 49 Years) Aged Out No longer eligible b ased on patient's age to complete this topic Care Teams Pricing Specialist Relationship Specialty Start Date End Date Unknown Unknow Provider Address PCP - General 02/12/19
== END 2024-09-27 12:02 | disposition home or self-care (01) ==
PROVIDERS: PCP Nurse Practitioner Family; Visit Provider Nurse Practitioner Family
DX: R00.0 Tachycardia, unspecified (principal); R00.2 Palpitations

== ENCOUNTER → 2024-09-27 11:12 | Outpatient (BNVA) | payer OTHER, SELFPAY | PROVIDERS: PCP Nurse Practitioner Family; Visit Provider Nurse Practitioner Family ==

== ENCOUNTER 2025-04-26 13:23 | Outpatient (AMB) | payer OTHER, SELFPAY ==
[2025-04-26 13:32] VITALS: BP 126/80; PULSE 85; RESP 16; TEMP 37.2; O2SAT 98; BMI 31.0
--- NOTE | 2025-04-26 13:32 | A.OFFPC_ITS ---
Vital Signs 04/26/25 13:32 Height 5 ft 9 in Weight 210 lb BMI 31.0 BP 126/80 Blood Pressure Location Lt brachial Position Sitting Respiration 16 Pulse 85 Pulse Source Pulse Oximeter Temp 98.9 F Temp Source Oral Pulse Oximetry (%) 98 Oxygen Delivery Method Room Air Intake Visit Reasons: PE,FU Medication Junior Systems Engineer Required: No Accompanied by: Self / Same As Patient Allergies No Known Allergies Allergy (Verified 04/26/25 14:11) Medication List - Last Reconciled 04/26/25 by YURIY Chapin indomethacin 50 mg PO BID PRN 30 days Tobacco use date assessed: 04/26/25 Dental Screening Dental Screen Date: 04/26/25 Did you have a dental visit in the last 12 months?: Yes Did you have a dental problem in the last 6 months where you did not have access to dental care?: No Was dental information given to patient?: Patient has dentist HPI PE,FU Medication HPI Details History of Present Illness The patient is a 44-year-old male presenting for a physical exam. The patient has a history of gout affecting the bilateral feet, primarily the ankles and right foot, with more than three attacks a year. He takes indomethacin for acute attacks, which he finds helpful. He reports some erectile dysfunction and has a history of an orchiectomy in 2020. He is following up with his urologist in the near future Health Maintenance - Patient presents for a physical exam. - Patient sees a urologist on a regular basis. Social History Review of Systems - Cardiovascular: Denies chest pain. - Respiratory: Denies shortness of breat h. - Gastrointestinal: Denies abdominal nicole n, blood in stool, constipation, or diarrhea. - Genitourinary: Reports erectile dysfun ction. - Musculoskeletal: Reports gout attacks in bilateral feet. Physical Exam General: Cooperative, healthy appearing, comfortable, no acute distress and well developed Orientation: Patient oriented x3 Limitations: No limitations Head: Normal to inspection Ears: Hearing grossly normal bilaterally Nose: Normal external nose present Face and sinus: Normal facial exam Eyes: Appearance normal, both eyes and all related structures Neck: Normal visual inspection and Yes full ROM Respiratory: Normal respiratory effort and able to speak in complete sentences. Clear to auscultation bilaterally Cardiovascular: Regular rate and rhythm. Normal S1 and S2 GI: Large right testicle. History of orchiectomy in 2020. Skin: No rashes or lesions noted Neuro: Patient oriented x3 Extremities: Normal to inspection. Results Plan 1. Gout The patient reports recurrent gout attacks affecting the bilateral feet, mainly the ankles and right foot, occurring more than three times a year. He reports relief with indomethacin. Plan to check uric acid levels and consider initiating allopurinol for prophylaxis. 2. Erectile Dysfunction The patient reports erectile dysfunction. He has a history of an orchiectomy in 2020 and is followed by a urologist regularly. A testosterone level will be checked. Discussion Notes I have discussed with the patient his recurrent gout, which occurs more than three times a year. I advised checking a uric acid level and discussed potentially starting allopurinol for prevention. We also discussed his erectile dysfunction, and I will be checking his testosterone level. The patient will continue his regular follow-up with his urologist. Patient Instructions - You will need to have blood tests to c heck your testosterone and uric acid levels. - Continue taking indomethacin as needed for gout attacks. - We may start a daily medication called allopurinol to help prevent future gout attacks based on your lab results. - Continue to see your urologist for reg ular check-ups. [facility] Medical History Heart palpitations Tachycardia Seminoma of descended right testis Mass of right testicle Surgical History History of orchiectomy, unilateral Hx of appendectomy Family History Father Prostate cancer Mother Afib Asthma High cholesterol HTN (hypertension) Brother Asthma High cholesterol HTN (hypertension) Social History Household Members: Spouse Housing: House Are you a primary career services coordinator to a significant other at home: No Do you presently have visiting nurse or other home services: No Alcohol intake: current Alcohol intake frequency: holidays/special occasions only Alcohol type: beer Patient Tobacco Use Status: Never used Tobacco e-Cigarette/Vaping Use: Never Used Second Hand Smoke Exposure: No Substance Use Type: Marijuana service: Yes Current occupational status: employed Current occupation: [employer] Current occupational exposures/hazards: Yes Cognitive needs: No Hearing needs: No Vision needs: No Questionnaire Thrive Questionnaire Date Thrive assessed: 12/05/21 SUYAPA-7 AMB Questionnaire SUYAPA-7 Date SUYAPA - 7 assessed: 12/05/21 Source: Developed by Drs. Campos Koroma, Linh Stone, Matthew Diaz and colleagues, with an educational bryan from [employer]. Physical exam (Primary Care) Vital Signs: Last Vital Signs Temp 98.9 F 04/26/25 13:32 Pulse 85 04/26/25 13:32 Resp 16 04/26/25 13:32 BP 126/80 04/26/25 13:32 Pulse Ox 98 04/26/25 13:32 Oxygen Delivery Method Room Air 04/26/25 13:32 BMI result Body Mass Index 31.0 Tobacco/Smoking Status: Tobacco use Status Tobacco use date assessed 04/26/25 04/26/25 13:36 Patient Tobacco Use Status Never used Tobacco 04/26/25 13:36 e-Cigarette/Vaping Use Never Used 04/26/25 13:36 Thrive Assessment: Date of Thrive Assessment Date Thrive assessed 12/05/21 04/26/25 13:36 Coding Level of Care Code Est Pt Prev Care 40-64y(38987) Diagnoses Physical exam Z00.00 Erectile disorder N52.9 Gout M10.9 Screening for prostate cancer Z12.5 Assessment & Plan Assessment & Plan (1) Physical exam: Code(s): Z00.00 - Encounter for general adult medical examination without abnormal findings Category: Medical (2) Erectile disorder: Code(s): N52.9 - Male erectile dysfunction, unspecified Category: Medical (3) Gout: Code(s): M10.9 - Gout, unspecified Category: Medical (4) Screening for prostate cancer: Code(s): Z12.5 - Encounter for screening for malignant neoplasm of prostate Category: Medical Plan . Orders: Orders Lipid Panel Today Z00.00 - Encounter for general adult medical examination without abnormal findings Complete Blood Count Auto Diff Today Z00.00 - Encounter for general adult medical examination without abnormal findings Comprehensive [place]. Panel Fast Today Z00.00 - Encounter for general adult medical examination without abnormal findings TSH reflex Free T4 Today Z00.00 - Encounter for general adult medical examination without abnormal findings UA CC w/rflx Micro + Cult Today Z00.00 - Encounter for general adult medical ex amination without abnormal findings Testosterone, Free/Total Today N52.9 - Male erectile dysfunction, unspecified Uric Acid Today M10.9 - Gout, unspecified Prostate Specific Antigen Scr Today Z12.5 - Encounter for screening for malignant neoplasm of prostate Medications: Refilled indomethacin administer with food or milk 50 mg PO BID PRN 60 caps 2RF pain 30 days
--- OUTSIDE RECORDS SUMMARY | 2025-04-26 16:19 | XMS_ITS | Encounter Summary ---
Author Organization [facility] Address [address] [place] [id number] Phone Care Team Providers Care Manager Agriculture Name Role Phone Unknown, Unknown Primary Care Provider Garrett Gonzalez HAND SIGN WRITER Primary Care Provider + Encounter Details Date Type Department Care Team (Late st Contact Info) Description 02/14/2019 Procedure Pass [facility] [address] [place] [address] Social History Tobacco Use Types Packs/Day Years Used Date Smoking Tobacco: Never Smokeless Tobacco: Never Sex and Gender Information Value Date Recorded Sex Assigned at Not on file Legal Sex Male 9:13 AM EDT Gender Identity Not on file Sexual Orientation Not on file documented as of this encounter Plan of Treatment Not on file documented as of this encounter Visit Diagnoses Not on filedocumented in this encounter Care Teams Manager Agriculture Relationship Specialty Start Date End Date Unknown, Unknown, PCP - General 02/12/19 02/24/19 Garrett Case, NANDINI [facility] [address] [id number] PCP - General Family Medicine 02/25/19 documented as of this encounter Additional Source Comments The information contained in this document represents components of the legal health record. It is not the complete legal health record.[facility]
--- OUTSIDE RECORDS SUMMARY | 2025-04-26 16:19 | XMS_ITS | Clinical Summary ---
Author Organization [facility] Address [address] [place] [address] Care Team Providers Care Carbon Paper Coating Supervisor Name Role Phone Unknown Primary Care Provider [phone] -[phone] Social History Tobacco Use Types Packs/Day Years Used Date Smoking Tobacco: Never Assessed Sex and Gender Information Value Date Recorded Sex Assigned at Not on file Legal Sex Male 3:44 PM EDT Gender Identity Not on file Sexual Orientation Not on file Last Filed Vital Signs Vital Sign Reading Time Taken Comments Blood Pressure 110/80 05/05/2011 12:23 PM EST Pulse - - Temperature 37 C (98.6 F) 05/05/2011 12:23 PM EST Respiratory Rate - [...] 3-dose series) 1997 Colonoscopy 2023 Influenza Vaccine 01/21/2025 COVID-19 Vaccine ( - 2023-2 5 season) 2025 Pneumococcal Vaccine: Pediat jovan (0-5 Years) and At-Risk Patients (6 to 49 Years) Aged Out No longer eligible b ased on patient's age to complete this topic Insurance [facility] [employer] Care Teams Carbon Paper Coating Supervisor Relationship Specialty Start Date End Date Unknown Unknow Provider Address PCP - General 02/12/19
--- OUTSIDE RECORDS SUMMARY | 2025-04-26 16:19 | XMS_ITS | Encounter Summary ---
Author Organization [facility] Address [address] [facility] [address] [place] [address] Phone Care Team Providers Care Hardware Sales Assistant Name Role Phone Unknown, Unknown Primary Care Provider Garrett Gonzalez INSURANCE LOSS CONTROL SURVEYOR Primary Care Provider + Encounter Details Date Type Department Care Team (Late st Contact Info) Description 02/14/2019 Ophth Exam [facility] [address] [address] Tamar Polk MD [address] [place] [address], [address] [place] [phone] [email or web address] Social History Tobacco Use Types Packs/Day Years [...] on filedocumented in this encounter Care Teams Hardware Sales Assistant Relationship Specialty Start Date End Date Unknown, Unknown, PCP - General 02/12/19 02/24/19 Garrett Case, NANDINI 1963 [facility] [address] [place] [id number] PCP - General Family Medicine 02/25/19 documented as of this encounter Additional Source Comments The information contained in this document represents components of the legal health record. It is not the complete legal health record.[facility]
--- OUTSIDE RECORDS SUMMARY | 2025-04-26 16:19 | XMS_ITS | Encounter Summary ---
Author Organization [facility] Address [address] [place] [id number] Phone Care Team Providers Care Completion Supervisor Name Role Phone Unknown, Unknown Primary Care Provider Garrett Gonzalez TECHNICAL CABLE JOINTER Primary Care Provider + Encounter Details Date Type Department Care Team (Late st Contact Info) Description 02/12/2019 Ophth Exam [facility] [address] [address] Yvon Del Real MD, PhD [address] [place] [address], [place] [address] [email or web address] Social History Tobacco Use Types Packs/Day Years [...] on filedocumented in this encounter Care Teams Completion Supervisor Relationship Specialty Start Date End Date Unknown, Unknown, PCP - General 02/12/19 02/24/19 Garrett Case, NANDINI 1963 [facility] [address] [place] [id number] PCP - General Family Medicine 02/25/19 documented as of this encounter Additional Source Comments The information contained in this document represents components of the legal health record. It is not the complete legal health record.[facility]
--- OUTSIDE RECORDS SUMMARY | 2025-04-26 16:19 | XMS_ITS | Encounter Summary ---
Author Organization [facility] Address [address] [facility] [address] [place] [address] Phone Care Team Providers Care Provider Education Specialist Name Role Phone Unknown, Unknown Primary Care Provider Garrett Gonzalez I O PSYCHOLOGIST Primary Care Provider + Encounter Details Date Type Department Care Team (Late st Contact Info) Description 02/18/2019 Ophth Exam [facility] [address] [address] Tamar Polk MD [address] [place] [address], [address] [place] [id number] [email or web address] Social History Tobacco Use Types Packs/Day [...] on filedocumented in this encounter Care Teams Provider Education Specialist Relationship Specialty Start Date End Date Unknown, Unknown, PCP - General 02/12/19 02/24/19 Garrett Case, NANDINI [address] [facility] [address] [place] [address] PCP - General Family Medicine 02/25/19 documented as of this encounter Additional Source Comments The information contained in this document represents components of the legal health record. It is not the complete legal health record.[facility]
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
== END 2025-04-26 14:05 | disposition home or self-care (01) ==
LOC: HO.HMCC 13:24
PROVIDERS: PCP Nurse Practitioner Family; Visit Provider Nurse Practitioner Family
DX: Z00.00 Encounter for general adult medical examination without abnormal findings (principal); N52.9 Male erectile dysfunction, unspecified; M10.9 Gout, unspecified; Z12.5 Encounter for screening for malignant neoplasm of prostate

== ENCOUNTER 2025-05-12 08:29 | Outpatient (AMB) | payer OTHER, SELFPAY ==
--- NOTE | 2025-05-12 08:33 | A.OFFVIS_ITS ---
Intake Visit Reasons: testicular pain/ hx seminoma Intake Note: New Patient is present for Testicular pain and Hx Seminoma Urology Rx:none Blood Thinners:none Imaging completed: Abd/Pelvis CT 12/30/22 Labs done 08/01/22 Total Testosterone 415, Fr Testosterone 89.6 NKDA Respiratory Physician Required: No Accompanied by: Self / Same As Patient Allergies No Known Allergies Allergy (Verified 05/12/25 08:34) HPI Comments Details: Min ROSS is a very pleasant male. They are a patient of Dr Hinojosa. They are seen in the office today for the following urologic conditions. - right-sided testicular mass Current complaint intermittent urethral discomfort Evaluation today negative Does have discomfort after orgasm occasionally On exam absent right testicle, normal left testicle NABEEL normal no evidence of prostatitis Reassurance provided Recommendation trial of anti-inflammatories for 48 hours should he have recurrence 12 month follow-up with CT Testicular cancer - Seminoma Right orchiectomy 2020 He received 1 cycle adjuvant chemotherapy with carboplatin AUC 7. He tolerated it well. Imaging through 2022 NAD Lab work - 08/15 T 415, tumor markers negative Seminoma - Seminoma, limited to testis; lymphovascular invasion present; margins negative. - AJCC Stage (8th ed.): pT2 NX Data synopsis - Testis Specimen laterality: Right Tumor focality: Unifocal Tumor size: 1.6 x 1.1 x 0.9 cm Histologic type(s): Seminoma LVI: Present Invasion extent: Limited to testis Margins: Negative Spermatic cord: Negative TNM: pT2 NX PFSH Medical History Heart palpitations Tachycardia Seminoma of descended right testis Mass of right testicle Surgical History History of orchiectomy, unilateral Hx of appendectomy Family History Father Prostate cancer Mother Afib Asthma High cholesterol HTN (hypertension) Brother Asthma High cholesterol HTN (hypertension) Social History Household Members: Spouse Housing: House Are you a primary career portals teacher to a significant other at home: No Do you presently have visiting nurse or other home services: No Alcohol intake: current Alcohol intake frequency: holidays/special occasions only Alcohol type: beer Patient Tobacco Use Status: Never used Tobacco e-Cigarette/Vaping Use: Never Used Second Hand Smoke Exposure: No Substance Use Type: Marijuana service: Yes Current occupational status: employed Current occupation: [employer] Current occupational exposures/hazards: Yes Cognitive needs: No Hearing needs: No Vision needs: No Review of Systems Const Denies chills and Denies fever(s) Card Reports no additional complaints and Denies syncope Resp Denies cough GI Denies abdominal pain and Denies heartburn Reports as per HPI and Denies change in libido Neuro Denies syncope Psych Denies change in libido Endo Denies change in libido Physical Exam Const General: cooperative, healthy appearing, comfortable and no acute distress Orientation/consciousness: patient oriented x3 HEENT Face and sinus: Yes normal facial exam Mouth: moist mucous membranes Neck Neck: Yes normal visual inspection, Yes full ROM and Yes trachea midline Chest Chest palpation & inspection: normal inspection of the chest Resp Effort & Inspection: normal respiratory effort, able to speak in complete sentences and no respiratory distress GI Inspection: Yes normal to inspection Back/Spine/Pelvis Cervical Spine: normal cervical lordosis Thoracic/Lumbar Spine: thoracic and lumbar spine normal to inspection Skin General skin exam: no rashes or lesions noted Neuro General: patient oriented x3, gait normal, tone normal and moves all extremities Extrem General: Yes normal to inspection and Yes capillary refill normal Results AMB Urinalysis, Automated UA Leukoctes 0 Charlotte/uL Last Edit by VERONICA Bermudez on 05/12/25 08:43 UA Nitrite Negative Last Edit by VERONICA Bermudez on 05/12/25 08:43 UA Urobilinogen 0.2 mg/dL Last Edit by VERONICA Bermudez on 05/12/25 08:43 UA Protein 15 mg/dL Last Edit by VERONICA Bermudez on 05/12/25 08:43 UA pH 7.0 Last Edit by VERONICA Bermudez on 05/12/25 08:43 UA Blood 0 Dain/uL Last Edit by VERONICA Bermudez on 05/12/25 08:43 UA Specific Adams 1.015 Last Edit by VERONICA Bermudez on 05/12/25 08:4 3 UA Ketone Negative Last Edit by VERONICA Bermudez on 05/12/25 08:43 UA Bilirubin 0 mg/dL Last Edit by VERONICA Bermudez on 05/12/25 08:43 UA Glucose 0 mg/dL Last Edit by VERONICA Bermudez on 05/12/25 08:43 Results Reviewed Results Reviewed: Laboratory Last Values Urine pH (Auto) 7.0 05/12/25 08:42 Specific Adams (Auto) 1.015 05/12/25 08:42 Urine Protein (Auto) 15 mg/dL 05/12/25 08:42 Glucose (UA)(Auto) 0 mg/dL 05/12/25 08:42 Urine Ketones (Auto) Negative 05/12/25 08:42 Urine Blood (Auto) 0 Dain/uL 05/12/25 08:42 Urine Nitrite (Auto) Negative 05/12/25 08:42 Urine Bilirubin (Auto) 0 mg/dL 05/12/25 08:42 Urine Urobilinogen (Auto) 0.2 mg/dL 05/12/25 08:42 Leukocyte Esterase (Auto) 0 Charlotte/uL 05/12/25 08:42 Assessment & Plan Assessment & Plan (1) Seminoma of descended right testis: Code(s): C62.11 - Malignant neoplasm of descended right testis Category: Medical (2) Epididymitis: Code(s): N45.1 - Epididymitis Category: Medical Plan Twelve month follow-up CT abdomen Orders: Orders CT abdomen pelvis wo/w IV con 12 Months C62.11 - Malignant neoplasm of descended right testis Patient Instructions: This note is constructed using voice recognition software. While every effort has been made to ensure accuracy compressor mechanic bus errors may have been included. Imaging studies, laboratory and physical exam results were discussed and reviewed in detail. No major barriers to patient understanding were identified. An opportunity to ask questions regarding the treatment plan was provided. All questions were answered. The patient expressed understanding and agreement with the above treatment plan. The patient is aware they should contact our office by phone for worsening of their current condition or the appearance of new urologic symptoms. Compliance is encouraged with any medications and followup testing that is ordered. It is a privilege to participate in the urologic care of your patient. If you have any questions or concerns regarding treatment for the above conditions, or other urologic issues, please do not hesitate to contact me. The office telephone contact is [phone]. Sincerely, Dr Raj Tran MD, [facility] - Urology Compassionate Specialist Care for the Genitourinary System Coding Level of Care Code New Pt Level 3 (77132) Complex EM visit Add On G2211 Diagnoses Seminoma of descended right testis C62.11 Epididymitis N45.1
--- OUTSIDE RECORDS SUMMARY | 2025-05-12 09:18 | XMS_ITS | Encounter Summary ---
Author Organization [facility] Address [address] [place] [phone] Phone Care Team Providers Care Human Services Assistant Name Role Phone Unknown, Unknown Primary Care Provider Garrett Gonzalez WELL DRILLER Primary Care Provider + Encounter Details Date Type Department Care Team (Late st Contact Info) Description 02/14/2019 Procedure Pass [facility] [address] [place] [address] Social History Tobacco Use Types Packs/Day Years [...] on filedocumented in this encounter Care Teams Human Services Assistant Relationship Specialty Start Date End Date Unknown, Unknown, PCP - General 02/12/19 02/24/19 Garrett Case, NANDINI [facility] [address] [place] [id number] PCP - General Family Medicine 02/25/19 documented as of this encounter Additional Source Comments The information contained in this document represents components of the legal health record. It is not the complete legal health record.[facility]
--- OUTSIDE RECORDS SUMMARY | 2025-05-12 09:18 | XMS_ITS | Clinical Summary ---
Author Organization [facility] Address [address] [place] [address] Care Team Providers Care Steam Turbine Operator Name Role Phone Unknown Primary Care Provider [...] patient's age to complete this topic Insurance [facility] [employer] Care Teams Steam Turbine Operator Relationship Specialty Start Date End Date Unknown Unknow Provider Address PCP - General 02/12/19
--- OUTSIDE RECORDS SUMMARY | 2025-05-12 09:18 | XMS_ITS | Encounter Summary ---
Author Organization [facility] Address [address] [place] [address] Phone Care Team Providers Care Client Services Account Manager Name Role Phone Unknown, Unknown Primary Care Provider Garrett Gonzalez RETAIL SEASONAL SPECIALIST Primary Care Provider + Encounter Details Date Type Department Care Team (Late st Contact Info) Description 02/14/2019 Ophth Exam [facility] [address] [address] Tamar Polk MD [address] [place] [address], [address] [place] [id number] [email or web address] Social History Tobacco Use Types Packs/Day [...] on filedocumented in this encounter Care Teams Client Services Account Manager Relationship Specialty Start Date End Date Unknown, Unknown, PCP - General 02/12/19 02/24/19 Garrett Case, NANDINI [address] [facility] [address] [place] [id number] PCP - General Family Medicine 02/25/19 documented as of this encounter Additional Source Comments The information contained in this document represents components of the legal health record. It is not the complete legal health record.[facility]
--- OUTSIDE RECORDS SUMMARY | 2025-05-12 09:18 | XMS_ITS | Encounter Summary ---
Author Organization [facility] Address [address] [place] [phone] Phone Care Team Providers Care Dry Ice Maker Name Role Phone Unknown, Unknown Primary Care Provider Garrett Gonzalez JAVA TECHNICAL ARCHITECT Primary Care Provider + Encounter Details Date Type Department Care Team (Late st Contact Info) Description 02/12/2019 Ophth Exam [facility] [address] [address] Yvon Del Real MD, PhD [address] [place] [address], [place] [address] [email or web address] Social History Tobacco Use Types Packs/Day Years [...] on filedocumented in this encounter Care Teams Dry Ice Maker Relationship Specialty Start Date End Date Unknown, Unknown, PCP - General 02/12/19 02/24/19 Garrett Case, NANDINI [address] [facility] [address] [place] [id number] PCP - General Family Medicine 02/25/19 documented as of this encounter Additional Source Comments The information contained in this document represents components of the legal health record. It is not the complete legal health record.[facility]
--- OUTSIDE RECORDS SUMMARY | 2025-05-12 09:19 | XMS_ITS | Encounter Summary ---
Author Organization [facility] Address [address] [place] [address] Phone Care Team Providers Care Police Reserves Commander Name Role Phone Unknown, Unknown Primary Care Provider Garrett Gonzalez SENIOR INSTRUCTIONAL DESIGNER Primary Care Provider + Encounter Details Date Type Department Care Team (Late st Contact Info) Description 02/18/2019 Ophth Exam [facility] [address] [address] Tamar Polk MD [address] [place] [address], [address] [place] [phone] [email or web address] Social History Tobacco Use Types [...] on filedocumented in this encounter Care Teams Police Reserves Commander Relationship Specialty Start Date End Date Unknown, Unknown, PCP - General 02/12/19 02/24/19 Garrett Case, NANDINI [address] [facility] [address] [place] [id number] PCP - General Family Medicine 02/25/19 documented as of this encounter Additional Source Comments The information contained in this document represents components of the legal health record. It is not the complete legal health record.[facility]
--- OUTSIDE RECORDS SUMMARY | 2025-05-12 09:19 | XMS_ITS | Clinical Summary ---
Author Organization [facility] Address [address] [facility] [address] [place] [phone] Phone Care Team Providers Care Licensed Insurance Sales Agent Name Role Phone Garrett Case NP Primary [...] on file Insurance [address] [place], [place] [address]O [facility] Advance Directives For more information, please contact: [phone] (9AM - 5PM Danay/[facility], Friday-Friday) * Full Code (Presumed) (Latest [...] 1:43 PM 02/12/2019 3:32 PM Care Teams Licensed Insurance Sales Agent Relationship Specialty Start Date End Date Garrett Case NP [address] [facility] [place] [id number] PCP - General Family Medicine 02/25/19 Additional Source Comments The information contained in this document represents components of the legal health record. It is not the complete legal health record.[facility]
== END 2025-05-12 09:10 | disposition home or self-care (01) ==
LOC: HO.HUSH 08:29
PROVIDERS: PCP Nurse Practitioner Family; Visit Provider Urology
DX: C62.11 Malignant neoplasm of descended right testis (principal); N45.1 Epididymitis
CPT/HCPCS: 99203; G2211